=== PATIENT | male | born 1955 | race African-American/Black ===

== ENCOUNTER 2022-05-09 11:09 | Day surgery (SDC) | payer OTHER ==
[~2022-05-09] VITALS: Ht 177.8 cm; Wt 89.4 kg
[~2022-05-09 11:09] MED LIST: ALLO100T PO; AMLO1TAB25 PO; AMLO25TA PO; ASPI-523 PO; CARV6.25 PO; FERR325T3 PO; HYDR-3490 PO; HYDR12.55 PO; HYDR500C3 PO; JARD1TAB PO; KLOR1TAB73 PO; LIPI80TA PO; METF-838 PO; METF500T13 PO; NEXI40CA PO; NITR0.1S SL; NS 1,000 ML IV ONE; OYST500T12 PO; PANT40TA29 PO; POTA-151 PO; VITA250T18 PO
[2022-05-09] MEDS ORDERED: LIDOCAINE 2% 100MG/5ML SDV (FOR ANES.) As Ordered ONE (12:39)
[2022-05-09] MEDS ORDERED: propofoL 200 MG/20 ML VIAL As Ordered ONE ×3 (12:39→13:07)
[2022-05-09 13:50] VITALS: BP 131/72
== END 2022-05-09 13:58 | disposition home or self-care (01) ==
LOC: M OPP 11:09
PROVIDERS: ATTEND Internal Medicine Gastroenterology
DX: D12.3 Benign neoplasm of transverse colon (principal); K64.0 First degree hemorrhoids; D50.9 Iron deficiency anemia, unspecified; K44.9 Diaphragmatic hernia without obstruction or gangrene; K29.70 Gastritis, unspecified, without bleeding; K22.89 Other specified disease of esophagus; E11.9 Type 2 diabetes mellitus without complications; I25.2 Old myocardial infarction; I10 Essential (primary) hypertension; E78.00 Pure hypercholesterolemia, unspecified; Z79.02 Long term (current) use of antithrombotics/antiplatelets; Z79.82 Long term (current) use of aspirin; Z79.84 Long term (current) use of oral hypoglycemic drugs; Z79.899 Other long term (current) drug therapy; Z95.5 Presence of coronary angioplasty implant and graft

== ENCOUNTER → 2023-08-23 | Outpatient (CLI) | payer MEDICARE, OTHER ==
[~2023-08-23] MED LIST changes: -NS 1,000 ML IV ONE
== END ==
LOC: M RAD 09:31
PROVIDERS: ATTEND Physician Assistant
DX: R09.89 Other specified symptoms and signs involving the circulatory and respiratory systems (principal)